=== PATIENT | female | born 1965 | race Hispanic/Latino ===

== ENCOUNTER 2018-08-16 08:37 | Day surgery (SDC) | payer OTHER, MEDICARE ==
[2018-08-13 15:58] VITALS: BMI 34.7
[2018-08-16] MEDS ORDERED: CEFAZOLIN/Water 2 GM/20 ML SYRINGE ONE (11:42)
[2018-08-16] MEDS ORDERED: Scopolamine 1.5 mg/72 hour Patch ONE (11:42)
[2018-08-16] MEDS ORDERED: Lidocaine 2% Jelly 5 ML TUBE ONE (11:57)
[2018-08-16] MEDS ORDERED: Midazolam HCl 2 mg/2 ml Vial ONE (11:57)
[2018-08-16] MEDS ORDERED: Fentanyl 100 MCG/2 ML VIAL ONE (11:57)
[2018-08-16] MEDS ORDERED: Promethazine HCl 25 MG/ML VIAL ONE (12:54)
--- NOTE | 2018-08-16 13:17 | OP ---
DATE OF PROCEDURE: 08/16/2018 SURGEON: Lele Munroe M.D. INFANTRYMAN: Tim Billings PROCEDURE: Right L4-5 microdiskectomy. PROCEDURE IN DETAIL: The patient was brought to the operating room and intubated. She was rolled in the prone position on gel-filled chest rolls. Incision made exposing L4 and L5 on the right and our level was confirmed by x-ray. We performed a right L4-5 hemilaminectomy, removed the yellow ligamen t and identified the right L5 nerve root. Beneath this was a large extruded disk herniation. This w as removed in multiple fragments and a complete decompression of right L5 was achieved. The wound wa s extensively irrigated, immaculate hemostasis was secured. Vancomycin powder was applied and the wo und was closed in anatomic layers.
[2018-08-16] MEDS ORDERED: HYDROcodone/Acetaminophen 5/325 mg Tablet ONE (15:09)
[2018-08-16] MEDS ORDERED: Dexamethasone 20 MG/5 ML VIAL ONE (17:04)
[2018-08-16] MEDS ORDERED: Lidocaine 1% PF 5 ML VIAL ONE (17:04)
[2018-08-16] MEDS ORDERED: PHENYLEPHRINE-NS 100 MCG/ML 10 ML SYRINGE ONE (17:04)
[2018-08-16] MEDS ORDERED: PROPOFOL 200 MG/20 ML VIAL ONE (17:04)
[2018-08-16] MEDS ORDERED: Glycopyrrolate 0.2 MG/ML 5 ML SYRINGE ONE (17:04)
== END 2018-08-16 16:10 | disposition home or self-care (01) ==
LOC: EDBD → SDC 08:37
PROVIDERS: ATTEND Neurological Surgery
PROC: 0SB20ZZ Excision of Lumbar Vertebral Disc, Open Approach (ICD-10-PCS; principal; 2018-08-16)
PROC: 01NB0ZZ Release Lumbar Nerve, Open Approach (ICD-10-PCS; principal; 2018-08-16)
DX: M51.16 Intervertebral disc disorders with radiculopathy, lumbar region (principal); L40.50 Arthropathic psoriasis, unspecified; Z91.041 Radiographic dye allergy status
CPT/HCPCS: 76001; J1100; J2001; J2250; J2550; J2704; J3010; J3370